=== PATIENT | male | born 1975 | race Caucasian/White ===

== ENCOUNTER 2019-10-14 16:57 | Emergency (ER) | payer BC ==
[~2019-10-14] VITALS: Ht 172.7 cm; Wt 114.3 kg
[2019-10-14] MEDS ORDERED: CENTRUM ADULTS1 EACH PO (17:16)
[2019-10-14] MEDS ORDERED: ROGAINE60 M1 (17:16)
--- NOTE | 2019-10-15 06:13 | EKG ---
[facility] [address] [facility] [place] [address] Signed Sinus bradycardia Nonspecific ST abnormality Abnormal ECG No previous ECGs available Confirmed by NARINDER MILLER MD [id number] on 10/15/2019 6:13:44 AM Electronically Signed By: NARINDER MILLER MD 10/15/19612 PATIENT NAME: KARLEE SANTOS SHAHZAD Electrocardiogram DATE OF : 79 PHYSICIAN: NARINDER MILLER MD REPORT #: [id number] REPORT IS CONFIDENTIAL AND NOT TO BE RELEASED WITHOUT AUTHORIZATION
== END 2019-10-14 19:21 | disposition home or self-care (01) ==
LOC: ED 16:57
DX: R00.2 Palpitations (principal); Z79.899 Other long term (current) drug therapy
CPT/HCPCS: 0297T; 0298T; 80053; 83735; 84439; 84443; 84484; 85025; 93005; 93010; 99285-25